=== PATIENT | female | born 1945 | race Two or more races ===

== ENCOUNTER 2017-07-06 06:52 | Emergency (ER) | payer OTHER ==
[~2017-07-06] VITALS: Ht 160 cm; Wt 76.2 kg
[~2017-07-06 06:52] MED LIST: LIPITOR20 MG PO; ORPH100T PO; TUSSI-PRES LIQ118 ML PO; ZITHROMAX500 MG PO
[2017-07-06] MEDS ORDERED: CRESTOR5 MG PO (07:23)
[2017-07-06] MEDS ORDERED: COZAAR25 MG PO (07:23)
[2017-07-06] MEDS ORDERED: XOPENEX CO1.25 MG/0. IH ×2 (11:25→11:26)
[2017-07-06] MEDS ORDERED: OSEL75CA PO (11:26)
[2017-07-06] MEDS ORDERED: TUSSIONEX PENN115 ML PO (11:26)
[2017-07-06] MEDS ORDERED: PULMICORT1 MG/2 ML IH (11:26)
== END 2017-07-06 12:30 | disposition home or self-care (01) ==
LOC: ER 06:52
DX: B34.9 Viral infection, unspecified (principal); J09.X2 Influenza due to identified novel influenza A virus with other respiratory manifestations

== ENCOUNTER 2018-10-19 13:19 | Outpatient (CLI) | payer OTHER ==
[~2018-10-19 13:19] MED LIST changes: +COZAAR25 MG PO; +CRESTOR5 MG PO; +OSEL75CA PO; +PULMICORT1 MG/2 ML IH; +TUSSIONEX PENN115 ML PO; +XOPENEX CO1.25 MG/0. IH
== END 2018-10-19 13:23 | disposition home or self-care (01) ==
LOC: RAD 13:19
DX: J32.8 Other chronic sinusitis (principal)

== ENCOUNTER 2019-07-17 11:33 | Emergency (ER) | payer OTHER ==
[~2019-07-17] VITALS: Ht 160 cm; Wt 76.2 kg
== END 2019-07-17 15:51 | disposition home or self-care (01) ==
LOC: ER 11:33
DX: L03.116 Cellulitis of left lower limb (principal)

== ENCOUNTER 2021-08-16 10:49 | Outpatient (CLI) | payer OTHER | END 2021-08-16 10:53 | disposition home or self-care (01) | LOC: NUCLEAR 10:49 | PROVIDERS: ATTEND Internal Medicine Cardiovascular Disease | DX: R60.0 Localized edema (principal) ==

== ENCOUNTER 2022-06-15 13:12 | Emergency (ER) | payer OTHER ==
[~2022-06-15] VITALS: Ht 160 cm; Wt 74.8 kg
[2022-06-15] MEDS ORDERED: TUSNEL LIQUID178 ML PO (17:37)
[2022-06-15] MEDS ORDERED: ZITHROMAX500 MG PO (17:37)
[2022-06-15] MEDS ORDERED: MEDROLPACK PO (17:37)
[2022-06-15] MEDS ORDERED: XOPENEX0.63 MG/3 IH (17:37)
== END 2022-06-15 17:43 | disposition home or self-care (01) ==
LOC: ER 13:12
DX: J45.901 Unspecified asthma with (acute) exacerbation (principal); Z20.822 Contact with and (suspected) exposure to COVID-19

== ENCOUNTER 2024-02-05 09:11 | Outpatient (CLI) | payer OTHER ==
[~2024-02-05 09:11] MED LIST changes: +MEDROLPACK PO; +TUSNEL LIQUID178 ML PO; +XOPENEX0.63 MG/3 IH
== END 2024-02-05 09:12 | disposition home or self-care (01) ==
LOC: NUCLEAR 09:11
PROVIDERS: ATTEND Obstetrics & Gynecology
DX: R55 Syncope and collapse (principal); R20.0 Anesthesia of skin; M81.0 Age-related osteoporosis without current pathological fracture

== ENCOUNTER 2024-02-07 09:44 | Outpatient (CLI) | payer OTHER | END 2024-02-07 09:45 | disposition home or self-care (01) | LOC: NUCLEAR 09:44 | DX: R20.0 Anesthesia of skin (principal); R55 Syncope and collapse ==

== ENCOUNTER 2024-02-16 08:01 | Outpatient (CLI) | payer OTHER | END 2024-02-16 08:02 | disposition home or self-care (01) | LOC: SONOGRAMA 08:01 | DX: R94.5 Abnormal results of liver function studies (principal) ==